=== PATIENT | male | born 1945 | race Caucasian/White ===

== ENCOUNTER 2016-08-25 13:53 | Emergency (ER) | payer MEDICARE, OTHER ==
[~2016-08-25] VITALS: Ht 175.3 cm; Wt 75.0 kg
[2016-08-25 14:01] VITALS: BP 0/0
[2016-08-25] MEDS ORDERED: CALCIUM CHLORIDE 1GM/10ML SYR IV ONE (14:43)
[2016-08-25] MEDS ORDERED: EPINEPHRINE 0.1MG/ML (1:10,000) 10ML SYR ONE (14:43)
[2016-08-25] MEDS ORDERED: AMIODARONE HCL 50MG/ML 3ML VIAL IV ONE (14:43)
[2016-08-25] MEDS ORDERED: SODIUM BICARBONATE 7.5% 0.9 MEQ/ML 50ML SYR IV ONE (14:43)
== END 2016-08-25 14:53 | disposition expired ==
LOC: ER 14:53
DX: I46.9 Cardiac arrest, cause unspecified (principal); C79.31 Secondary malignant neoplasm of brain; C78.00 Secondary malignant neoplasm of unspecified lung; Z85.118 Personal history of other malignant neoplasm of bronchus and lung
CPT/HCPCS: 31500; 36680; 82962; 92950; 99285; J0171; J0282; J3490